=== PATIENT | male | born 1950 | race Caucasian/White ===

== ENCOUNTER 2018-01-15 22:33 | Emergency (ER) | payer SELFPAY ==
[~2018-01-15] VITALS: Ht 177.8 cm; Wt 100.8 kg
[2018-01-15 22:59] VITALS: Ht 177.8 cm; Wt 100.8 kg
[2018-01-15 23:33] VITALS: BP 128/64
== END 2018-01-15 23:33 | disposition home or self-care (01) ==
LOC: ED 22:33
DX: L40.9 Psoriasis, unspecified (principal); F17.210 Nicotine dependence, cigarettes, uncomplicated